=== PATIENT | female | born 1950 | race Caucasian/White ===

== ENCOUNTER → 2016-09-13 | Outpatient (CLI) | payer MEDICAID | LOC: FIMAGING 08:09 | PROVIDERS: ATTEND Physician Assistant | DX: R13.14 Dysphagia, pharyngoesophageal phase (principal) | CPT/HCPCS: 78264; A9541 ==

== ENCOUNTER → 2016-11-21 | Outpatient (CLI) | payer MEDICAID | LOC: FIMAGING 14:08 | PROVIDERS: ATTEND Physician Assistant | DX: N64.89 Other specified disorders of breast (principal) | CPT/HCPCS: G0204 ==

== ENCOUNTER → 2017-03-16 | Outpatient (CLI) | payer OTHER, MEDICAID | LOC: FIMAGING 08:44 | PROVIDERS: ATTEND Physician Assistant | DX: Z13.820 Encounter for screening for osteoporosis (principal); M85.80 Other specified disorders of bone density and structure, unspecified site; E07.9 Disorder of thyroid, unspecified; Z78.0 Asymptomatic menopausal state ==

== ENCOUNTER 2017-05-11 13:50 | Emergency (ER) | payer OTHER, MEDICAID ==
[2017-05-11 14:03] VITALS: TEMP 98.4
[2017-05-11] MEDS ORDERED: ONDANSETRON 4 MG/2 ML VIAL ONE (14:56)
[2017-05-11] MEDS ORDERED: MAG HYDROX/AL HYDROX/SIMETH 30 ML UDCUP PO ONE (15:33)
[2017-05-11] MEDS ORDERED: NS 1,000 ML IV ONE (15:33)
[2017-05-11] MEDS ORDERED: FAMOTIDINE 20 MG/NACL 50 ML IV ONE (15:33)
[2017-05-11] MEDS ORDERED: LIDOCAINE 2% VISCOUS 15 ML UDCUP PO ONE (15:33)
[2017-05-11] MEDS ORDERED: ONDANSETRON 4 MG/2 ML VIAL IVP ONE ×2 (15:33→15:34)
--- NOTE | 2017-05-11 15:38 | EDPHY ---
H & P Time Seen by Provider: 05/11/17 15:09 HPI/ROS: CHIEF COMPLAINT: Abdominal pain HISTORY OF PRESENT ILLNESS: The patient is a 66-year-old female who presents emergency department epigastric abdominal pain, nausea and vomiting. Patient states she developed I have migraine earlier this morning at approximately 11: 00 a.m.. She had ran out of her migraine medications, and did not take anything. However, her migraine improved. At 1:00 p.m. she developed epigastric abdominal pain. She has had multiple episodes of nausea and nonbloody emesis. She denies fever. No dysuria or frequency. No flank pain. The pain does not radiate. It is moderate to severe. She has had 1 previous episode of this pain but they did not find a source. Patient denies any alcohol use. She states that she takes her methadone regularly. REVIEW OF SYSTEMS: My complete review of systems is negative except as mentioned in the HPI. Past Medical/Surgical History: Includes fibroids, DJD, migraine, hepatitis-C, small-bowel obstruction Past surgical history: Includes gynecologic surgery, surgery for small-bowel obstruction Social history: The patient does not smoke. She denies alcohol or drug use. Smoking Status: Light smoker Physical Exam: Vitals noted. Afebrile. GENERAL: mild acute distress, alert. HEENT: Eyes normal to inspection, normal pharynx, no signs of dehydration. NECK: No thyromegaly, no lymphadenopathy, supple. RESPIRATORY: Clear to auscultation bilaterally, no rales, rhonchi or wheezing. CVS: Regular rate and rhythm, no rubs, murmurs, or gallops. ABDOMEN: Soft, epigastric tenderness to palpation with no rebound or guarding, nondistended, no organomegaly. BACK: Normal to inspection, no CVA tenderness. SKIN: Normal color, no rash, warm, dry. No pallor. EXTREMITIES: No pedal edema, no calf tenderness, no joint swelling. NEURO/PSYCH: [Alert and oriented, normal mood and affect, normal motor sensory exam. Constitutional: Initial Vital Signs Temperature (C) 36.9 C 05/11/17 14:01 Heart Rate 82 05/11/17 14:01 Respiratory Rate 18 05/11/17 14:01 Blood Pressure 134/97 H 05/11/17 14:01 O2 Sat (%) 95 05/11/17 14:01 O2 Delivery Mode Room Air O2 (L/minute) 8 Allergies/Adverse Reactions: No Known Allergies Allergy (Verified 05/11/17 14:04) Home Medications: Medication Instructions Recorded Hyoscyamine Sulfate [Levsin, 0.125 mg PO BID PRN 12/11/13 Hyomax-Sl 0.125 mg (*)] Levothyroxine [Synthroid 125 mcg 125 mcg PO DAILY06 12/11/13 (*)] Omeprazole [Prilosec] 40 mg PO DAILY 12/11/13 Ondansetron HCl [Zofran] 4 mg PO BID PRN 12/11/13 Propranolol HCl 80 mg PO DAILY 12/11/13 Rizatriptan Benzoate [Maxalt 10mg] 10 mg PO PRN PRN 12/11/13 SUMAtriptan [Imitrex Sc Injection] 6 mg SQ PRN PRN 12/11/13 Acetaminophen [Tylenol 325mg (*)] 325 - 650 mg PO Q6 PRN #0 tab 12/31/13 Docusate Sodium [Colace 100 MG (*)] 100 mg PO BID #0 cap 12/31/13 Enoxaparin [Lovenox 40 MG (*)] 40 mg SC DAILY #4 syr 12/31/13 Oxycodone Ir [Oxy Ir 5 mg (RX)] 5 - 15 mg PO Q4 PRN #80 tab 12/31/13 Warfarin Sodium [Coumadin 5MG (*)] 5 mg PO DAILY20 #21 tab 12/31/13 celeCOXIB [Celebrex (*)] 200 mg PO DAILY #21 cap 12/31/13 oxyCODONE CR [Oxycontin] 10 mg PO BID #14 tab 12/31/13 Medical Decision Making - Diagnostics Imaging Results: Imaging Impressions Abdomen CT 05/11/17 15:34 Impression: 1. Moderate hiatal hernia. 2. There is a 14 mm left adrenal gland nodule which is difficult to further characterize. Consider follow-up multiphasic contrast-enhanced CT imaging in 3- 6 months to ensure stability. 3. Bilateral renal cortical cysts. 4. Moderate constipation. There is no evidence of a bowel obstruction. Findings were discussed with SANDY GONZALEZ MD at 17:41, on 05/11/2017. ED Course/Re-evaluation: In the emergency department I discussed possible etiologies with the patient. I answered all her questions. IV was placed. Laboratory studies, CT scan were ordered. Patient was given Zofran 4 mg IV for nausea. She was given a GI cocktail for pain. She was given Pepcid 20 mg IV. The patient was given normal saline IV for hydration. Patient continued to have discomfort after above medications. She is given fentanyl 100 mcg IV. [place] [id number]. Her chemistry panel was normal. LFTs normal. Lipase normal. On recheck the patient continued to have abdominal discomfort. She stated the medications did not help her symptoms. She is given morphine [address] of the abdomen pelvis: Please refer the dictated report by Dr. Seferino Rubio. No acute disease noted. She has mild atrophy of her adrenal gland. This will need follow-up in 6 months. Discussed the results with the patient. Patient still discomfort. Mild epigastric tenderness palpation with no rebound or guarding. She was given Dilaudid 0.5 mg IV and Reglan 10 mg IV. 1825: I went to recheck the patient. She was not in the room. 1835: I again went to check on the patient. She was still not in the room. I discussed this with the nurse. The patient's clothes are gone from the room. It is noted that there is no visible IV in the room. Patient currently uses methadone. I have concern with IV drug abuse. PD was notified. Differential Diagnosis: My differential includes but is not limited to pancreatitis, cholecystitis, cholangitis, small-bowel obstruction, perforation, gastritis, esophagitis, hiatal hernia, ACS - Data Points Laboratory Results: Laboratory Results 05/11/17 15:30 05/11/17 15:30 05/11/17 05/11/17 05/11/17 17:16 15:30 15:30 WBC RBC Hgb Hct MCV MCH MCHC RDW Plt Count MPV Neut % (Auto) Lymph % (Auto) [place] % (Auto) Eos % (Auto) Baso % (Auto) Nucleat RBC Rel Count Absolute Neuts (auto) Absolute Lymphs (auto) Absolute Monos (auto) Absolute Eos (auto) Absolute Basos (auto) Absolute Nucleated RBC Immature Gran % Immature Gran # Sodium 140 mEq/L mEq/L (134-144) Potassium 4.1 mEq/L mEq/L (3.5-5.2) Chloride 101 mEq/L mEq/L (97-110) Carbon Dioxide 22 mEq/l mEq/l (22-31) Anion Gap 17 mEq/L H mEq/L (8-16) BUN 18 mg/dL mg/dL (7-23) Creatinine 0.7 mg/dL mg/dL (0.6-1.0) Estimated GFR > 60 Glucose 118 mg/dL H mg/dL (70-100) Calcium 9.8 mg/dL mg/dL (8.5-10.4) Total Bilirubin 0.6 mg/dL mg/dL (0.1-1.4) Conjugated Bilirubin 0.4 mg/dL mg/dL (0.0-0.5) Unconjugated Bilirubin 0.2 mg/dL mg/dL (0.0-1.1) AST 25 IU/L IU/L (14-46) ALT 35 IU/L IU/L (9-52) Alkaline Phosphatase 110 IU/L IU/L (38-126) Total Protein 7.1 g/dL g/dL (6.3-8.2) Albumin 4.3 g/dL g/dL (3.5-5.0) Lipase 83 IU/L IU/L (23-300) Beta HCG, Qual NEGATIVE Urine Color YELLOW Urine Appearance CLEAR Urine pH 6.0 (5.0-7.5) Ur Specific [place] 1.034 H (1.002-1.030) Urine Protein NEGATIVE (NEGATIVE) Urine Ketones 1+ H (NEGATIVE) Urine Blood NEGATIVE (NEGATIVE) Urine Nitrate NEGATIVE (NEGATIVE) Urine Bilirubin NEGATIVE (NEGATIVE) Urine Urobilinogen NEGATIVE EU EU (0.2-1.0) Ur Leukocyte Esterase NEGATIVE (NEGATIVE) Urine Glucose NEGATIVE (NEGATIVE) 05/11/17 15:30 WBC 13.26 10^3/uL H 10^3/uL (3.80-9.50) RBC 4.61 10^6/uL 10^6/uL (4.18-5.33) Hgb 14.3 g/dL g/dL (12.6-16.3) Hct 40.1 % % (38.0-47.0) MCV 87.0 fL fL (81.5-99.8) MCH 31.0 pg pg (27.9-34.1) MCHC 35.7 g/dL g/dL (32.4-36.7) RDW 12.6 % % (11.5-15.2) Plt Count 316 10^3/uL 10^3/uL (150-400) MPV 10.6 fL fL (8.7-11.7) Neut % (Auto) 80.0 % H % (39.3-74.2) Lymph % (Auto) 13.1 % L % (15.0-45.0) [place] % (Auto) 4.2 % L % (4.5-13.0) Eos % (Auto) 1.4 % % (0.6-7.6) Baso % (Auto) 0.8 % % (0.3-1.7) Nucleat RBC Rel Count 0.0 % % (0.0-0.2) Absolute Neuts (auto) 10.61 10^3/uL H 10^3/uL (1.70-6.50) Absolute Lymphs (auto) 1.74 10^3/uL 10^3/uL (1.00-3.00) Absolute Monos (auto) 0.56 10^3/uL 10^3/uL (0.30-0.80) Absolute Eos (auto) 0.18 10^3/uL 10^3/uL (0.03-0.40) Absolute Basos (auto) 0.11 10^3/uL H 10^3/uL (0.02-0.10) Absolute Nucleated RBC 0.00 10^3/uL 10^3/uL (0-0.01) Immature Gran % 0.5 % % (0.0-1.1) Immature Gran # 0.06 10^3/uL 10^3/uL (0.00-0.10) Sodium Potassium Chloride Carbon Dioxide Anion Gap BUN Creatinine Estimated GFR Glucose Calcium Total Bilirubin Conjugated Bilirubin Unconjugated Bilirubin AST ALT Alkaline Phosphatase Total Protein Albumin Lipase Beta HCG, Qual Urine Color Urine Appearance Urine pH Ur Specific [place] Urine Protein Urine Ketones Urine Blood Urine Nitrate Urine Bilirubin Urine Urobilinogen Ur Leukocyte Esterase Urine Glucose Medications Given: Discontinued Medications Al Hydroxide/Mg Hydroxide (Maalox Susp) 30 ml PO ONCE ONE Stop: 05/11/17 15:34 Last Admin: 05/11/17 16:43 Dose: 30 ml Fentanyl (Sublimaze) 100 mcg IVP EDNOW ONE Stop: 05/11/17 15:51 Last Admin: 05/11/17 15:56 Dose: 100 mcg Hydromorphone HCl (Dilaudid) 0.5 mg IVP EDNOW ONE Stop: 05/11/17 17:53 Last Admin: 05/11/17 18:03 Dose: 0.5 mg Sodium Chloride (Ns) 1,000 mls @ 0 mls/hr IV EDNOW ONE; Wide Open PRN Reason: Protocol Stop: 05/11/17 15:34 Last Admin: 05/11/17 15:41 Dose: 1,000 mls Famotidine/Sodium Chloride (Pepcid 20 Mg (Premix)) 50 mls @ 200 mls/hr IV EDNOW ONE Stop: 05/11/17 15:47 Last Admin: 05/11/17 15:42 Dose: 50 mls Lidocaine (Lidocaine 2% Viscous) 15 ml PO ONCE ONE Stop: 05/11/17 15:34 Last Admin: 05/11/17 16:43 Dose: 15 ml Metoclopramide HCl (Reglan Injection) 10 mg IVP EDNOW ONE Stop: 05/11/17 17:53 Last Admin: 05/11/17 18:03 Dose: 10 mg Morphine Sulfate (Morphine) 4 mg IVP EDNOW ONE Stop: 05/11/17 16:26 Last Admin: 05/11/17 16:30 Dose: 4 mg Ondansetron HCl (Zofran) 4 mg IVP EDNOW ONE Stop: 05/11/17 15:34 Last Admin: 05/11/17 15:41 Dose: 4 mg Ondansetron HCl (Zofran) 4 mg IVP EDNOW ONE Stop: 05/11/17 15:35 Last Admin: 05/11/17 17:10 Dose: Not Given Departure - Departure Disposition: Against Medical Advice Clinical Impression: Abdominal pain Qualifiers: Abdominal location: epigastric Qualified Code(s): R10.13 - Epigastric pain Condition: Good Instructions: Abdominal Pain (ED) Additional Instructions: Your CT scan showed no acute disease. You did have a small adrenal gland. This will need follow-up in 6 months by your primary care physician. Referrals: Dorcas Garrison [Primary Care Provider] - 5-7 days, call for appt.
[2017-05-11 15:40] LABS: % IMMATURE GRANULYOCYTES 0.5 % (0.0-1.1); ABSOLUTE IMMATURE GRANULOCYTES 0.06 10^3/uL (0.00-0.10); ADD DIFF? NO; ADD MORPH? NO; ADD SCAN? NO; ATYPICAL LYMPHOCYTE FLAG 0 (0-99); FRAGMENT RBC FLAG 0 (0-99); HEMATOCRIT 40.1 % (38.0-47.0); HEMOGLOBIN 14.3 g/dL (12.6-16.3); LEFT SHIFT FLG 0 (0-99); LIPEMIA HEMOLYSIS FLAG 90 (0-99); MEAN CELL HEMOGLOBIN CONCENTR. 35.7 g/dL (32.4-36.7); MEAN PLATELET VOLUME 10.6 fL (8.7-11.7); PLATELET CLUMPS FLAG 0 (0-99); PLATELET COUNT 316 10^3/uL (150-400); RED BLOOD CELL COUNT 4.61 10^6/uL (4.18-5.33); RED CELL DISTRIBUTION WIDTH 12.6 % (11.5-15.2)
[2017-05-11 15:49] LABS: ALANINE AMINOTRANSFERASE 35 IU/L (9-52); ALBUMIN 4.3 g/dL (3.5-5.0); ALKALINE PHOSPHATASE 110 IU/L (38-126); ANION GAP 17 mEq/L (8-16); ASPARTATE AMINOTRANSFERASE 25 IU/L (14-46); BILIRUBIN,TOTAL 0.6 mg/dL (0.1-1.4); BILIRUBIN-CONJUGATED 0.4 mg/dL (0.0-0.5); BILIRUBIN-UNCONJUGATED 0.2 mg/dL (0.0-1.1); CALCIUM 9.8 mg/dL (8.5-10.4); CARBON DIOXIDE 22 mEq/l (22-31); CHLORIDE 101 mEq/L (97-110); CREATININE 0.7 mg/dL (0.6-1.0); GLOMERULAR FILTRATION RATE > 60; GLUCOSE 118 mg/dL (70-100); POTASSIUM 4.1 mEq/L (3.5-5.2); SODIUM 140 mEq/L (134-144); TOTAL PROTEIN 7.1 g/dL (6.3-8.2)
[2017-05-11] MEDS ORDERED: fentaNYL 100 MCG/2 ML INJ IVP ONE (15:50)
[2017-05-11] MEDS ORDERED: IOPAMIDOL (ISOVUE-300) 100 ML BTL ONE (16:12)
[2017-05-11 17:45] LABS: COLOR YELLOW; LEUKOCYTE ESTERASE,URINE NEGATIVE (NEGATIVE); NITRITE,URINE NEGATIVE (NEGATIVE)
[2017-05-11] MEDS ORDERED: METOCLOPRAMIDE 10 MG/2 ML VIAL IVP ONE (17:52)
[2017-05-11] MEDS ORDERED: HYDROmorphONE/DILAUDID 1 MG/ML INJ IVP ONE (17:52)
[2017-05-11 18:17] VITALS: BP 152/86; PULSE 68; RESP 16; O2SAT 98
== END 2017-05-11 18:53 | disposition left against medical advice (07) ==
DX: R10.13 Epigastric pain (principal); F17.200 Nicotine dependence, unspecified, uncomplicated; E86.9 Volume depletion, unspecified; Z79.01 Long term (current) use of anticoagulants
CPT/HCPCS: 74177; 96365; 96375; 99285; J1170; J2405; J2765; J3010; Q9967

== ENCOUNTER 2017-05-19 09:57 | Emergency (ER) | payer OTHER, MEDICAID ==
[2017-05-19] MEDS ORDERED: METOCLOPRAMIDE 10 MG/2 ML VIAL IVP ONE (10:55)
[2017-05-19] MEDS ORDERED: NS 1,000 ML IV ONE (10:55)
--- NOTE | 2017-05-19 11:00 | EDPHY ---
General Time Seen by Provider: 05/19/17 10:46 Narrative: CHIEF COMPLAINT: Abdominal pain, nausea vomiting HISTORY OF PRESENT ILLNESS: Patient complains of return of abdominal pain and vomiting this morning. This was sudden onset. Started after having a migraine this morning as well. Constant duration. Vomiting several times. Painful in the epigastrium and radiates throughout. No trauma or injury. No bloody stools. No fever chills. History of irritable bowel syndrome. Here for similar complaints last week with laboratory studies and CT scan performed. She was feeling well until this morning. No other associated complaints or modifying factors. REVIEW OF SYSTEMS: Ten systems reviewed and are negative unless otherwise noted in the HPI PCP: Dr. Garrison SPECIALISTS: [facility] PAST MEDICAL HISTORY: Irritable bowel syndrome, migraines Endoscopy less than 3 years ago at [facility] PAST SURGICAL HISTORY: Laparotomy due to Small-bowel obstruction with lysis of adhesions, myomectomies SOCIAL HISTORY: Nonsmoker. FAMILY HISTORY: Noncontributory EXAMINATION General Appearance: Alert, no distress Head: normocephalic, atraumatic Eyes: Pupils equal and round, no conjunctival pallor or injection ENT, Mouth: Mucous membranes moist. Uvula midline. Airway patent Neck: Normal inspection, supple, non-tender Respiratory: Lungs are clear to auscultation. No wheezing, rhonchi or crackles Cardiovascular: Regular rate and rhythm. No murmur Gastrointestinal: Abdomen is soft and nondistended. No tympany rigidity. Tenderness in all 4 quadrants out of proportion to examination. No CVA tenderness. No guarding. Bowel sounds symmetric in all 4 quadrants Neurological: A&O, nonfocal, normal gait walking back from the restroom. Strength is symmetric in all 4 limbs Skin: Warm and dry, no rash. No petechiae or purpura Extremities: Nontender, no pedal edema Psychiatric: Mood and affect normal DIFFERENTIAL DIAGNOSES: Including but not limited to gastritis, enteritis, colitis, irritable bowel, inflammatory bowel MDM: 10:55 a.m. Abdominal pain with nausea and vomiting in patient with irritable bowel syndrome. Abdominal examination is benign. Vital signs are stable. She was here on the [address] scan laboratory studies. There is no surgical finding on the CT scan. She was discharged home with Zofran and Compazine. She was feeling better until this morning. She is in no acute distress. Abdominal exam remains benign. I have ordered laboratory studies, Reglan and Benadryl. I will recheck after these medications. 11:10 a.m. Notified by the charge nurse that the patient was witness putting the index finger in her throat to make herself vomit. 12:00 p.m. laboratory studies reveal mild leukocytosis without any significant abnormality otherwise. 12:15 p.m. Notified by RN that the patient is asking for pain medication and threatening to leave we would not give it to her. I have re-evaluated the patient at this time. She is requesting narcotic pain medication. I informed her that I will not be ordered any narcotic pain medication. I informed her that there is no indication at this time. Her abdominal exam is benign. She does have irritable bowel but has no significant findings on examination laboratory studies. She has a CT scan performed here less than 8 days ago that was normal. I will discharge her home with further antiemetics. She has an appointment on Saturday with her established GI physician. I would like her to call them in the morning to see if they would like to see her sooner. We discussed ED precautions. - History Smoking Status: Light smoker - Objective Vital Signs: Initial Vital Signs Temperature (C) 97.5 F 05/19/17 10:02 Heart Rate 87 05/19/17 10:02 Respiratory Rate 22 H 05/19/17 10:02 Blood Pressure 92/60 L 05/19/17 10:02 O2 Sat (%) 97 05/19/17 10:02 O2 Delivery Mode Room Air Allergies/Adverse Reactions: No Known Allergies Allergy (Verified 05/11/17 14:04) Home Medications: Medication Instructions Recorded Hyoscyamine Sulfate [Levsin, 0.125 mg PO BID PRN 12/11/13 Hyomax-Sl 0.125 mg (*)] Levothyroxine [Synthroid 125 mcg 125 mcg PO DAILY06 12/11/13 (*)] Omeprazole [Prilosec] 40 mg PO DAILY 12/11/13 Ondansetron HCl [Zofran] 4 mg PO BID PRN 12/11/13 Propranolol HCl 80 mg PO DAILY 12/11/13 Rizatriptan Benzoate [Maxalt 10mg] 10 mg PO PRN PRN 12/11/13 SUMAtriptan [Imitrex Sc Injection] 6 mg SQ PRN PRN 12/11/13 Acetaminophen [Tylenol 325mg (*)] 325 - 650 mg PO Q6 PRN #0 tab 12/31/13 Docusate Sodium [Colace 100 MG (*)] 100 mg PO BID #0 cap 12/31/13 Enoxaparin [Lovenox 40 MG (*)] 40 mg SC DAILY #4 syr 12/31/13 Oxycodone Ir [Oxy Ir 5 mg (RX)] 5 - 15 mg PO Q4 PRN #80 tab 12/31/13 Warfarin Sodium [Coumadin 5MG (*)] 5 mg PO DAILY20 #21 tab 12/31/13 celeCOXIB [Celebrex (*)] 200 mg PO DAILY #21 cap 12/31/13 oxyCODONE CR [Oxycontin] 10 mg PO BID #14 tab 12/31/13 Dicyclomine [Bentyl 20 MG (*)] 20 mg PO QID #11 tab 05/19/17 Promethazine HCl [Phenergan 25mg 25 mg PO Q8 PRN #12 tab 05/19/17 (*)] hydrOXYzine HCL [Hydroxyzine HCl] 1 - 2 tab PO Q6-8PRN PRN #15 tablet 05/19/17 Laboratory Results: Laboratory Results 05/19/17 11:10 05/19/17 11:10 05/19/17 05/19/17 11:10 11:10 WBC 11.03 10^3/uL H 10^3/uL (3.80-9.50) RBC 4.96 10^6/uL 10^6/uL (4.18-5.33) Hgb 15.5 g/dL g/dL (12.6-16.3) Hct 43.6 % % (38.0-47.0) MCV 87.9 fL fL (81.5-99.8) MCH 31.3 pg pg (27.9-34.1) MCHC 35.6 g/dL g/dL (32.4-36.7) RDW 12.7 % % (11.5-15.2) Plt Count 347 10^3/uL 10^3/uL (150-400) MPV 10.8 fL fL (8.7-11.7) Neut % (Auto) 76.8 % H % (39.3-74.2) Lymph % (Auto) 14.2 % L % (15.0-45.0) [place] % (Auto) 5.1 % % (4.5-13.0) Eos % (Auto) 2.4 % % (0.6-7.6) Baso % (Auto) 1.2 % % (0.3-1.7) Nucleat RBC Rel Count 0.0 % % (0.0-0.2) Absolute Neuts (auto) 8.48 10^3/uL H 10^3/uL (1.70-6.50) Absolute Lymphs (auto) 1.57 10^3/uL 10^3/uL (1.00-3.00) Absolute Monos (auto) 0.56 10^3/uL 10^3/uL (0.30-0.80) Absolute Eos (auto) 0.26 10^3/uL 10^3/uL (0.03-0.40) Absolute Basos (auto) 0.13 10^3/uL H 10^3/uL (0.02-0.10) Absolute Nucleated RBC 0.00 10^3/uL 10^3/uL (0-0.01) Immature Gran % 0.3 % % (0.0-1.1) Immature Gran # 0.03 10^3/uL 10^3/uL (0.00-0.10) Sodium 142 mEq/L mEq/L (134-144) Potassium 4.2 mEq/L mEq/L (3.5-5.2) Chloride 103 mEq/L mEq/L (97-110) Carbon Dioxide 24 mEq/l mEq/l (22-31) Anion Gap 15 mEq/L mEq/L (8-16) BUN 21 mg/dL mg/dL (7-23) Creatinine 0.7 mg/dL mg/dL (0.6-1.0) Estimated GFR > 60 Glucose 117 mg/dL H mg/dL (70-100) Calcium 10.2 mg/dL mg/dL (8.5-10.4) Total Bilirubin 0.4 mg/dL mg/dL (0.1-1.4) Conjugated Bilirubin 0.3 mg/dL mg/dL (0.0-0.5) Unconjugated Bilirubin 0.1 mg/dL mg/dL (0.0-1.1) AST 23 IU/L IU/L (14-46) ALT 34 IU/L IU/L (9-52) Alkaline Phosphatase 116 IU/L IU/L (38-126) Troponin I < 0.012 ng/mL ng/mL (0.000-0.034) Total Protein 7.6 g/dL g/dL (6.3-8.2) Albumin 4.6 g/dL g/dL (3.5-5.0) Lipase 106 IU/L IU/L (23-300) Medications Given: Discontinued Medications Diphenhydramine HCl (Benadryl Injection) 50 mg IVP EDNOW ONE Stop: 05/19/17 10:57 Last Admin: 05/19/17 11:09 Dose: 50 mg Sodium Chloride (Ns) 1,000 mls @ 0 mls/hr IV EDNOW ONE; Wide Open PRN Reason: Protocol Stop: 05/19/17 10:56 Last Admin: 05/19/17 11:09 Dose: 1,000 mls Metoclopramide HCl (Reglan Injection) 10 mg IVP EDNOW ONE Stop: 05/19/17 10:56 Last Admin: 05/19/17 11:09 Dose: 10 mg Departure - Departure Disposition: Home, Routine, Self-Care Clinical Impression: Abdominal pain Qualifiers: Abdominal location: generalized Qualified Code(s): R10.84 - Generalized abdominal pain Irritable bowel syndrome Qualifiers: Irritable bowel syndrome type: unspecified Qualified Code(s): K58.9 - Irritable bowel syndrome without diarrhea Condition: Good Instructions: Irritable Bowel Syndrome (ED), Acute Nausea and Vomiting (ED) Additional Instructions: 1. Nausea medications as prescribed 2. Follow up with established GI physician Referrals: Dorcas Garrison [Primary Care Provider] - As per Instructions Prescriptions: Dicyclomine [Bentyl 20 MG (*)] 20 mg PO QID #11 tab hydrOXYzine HCL [Hydroxyzine HCl] 1 - 2 tab PO Q6-8PRN PRN #15 tablet PRN Reason: Nausea/Vomiting, Use 2nd Promethazine HCl [Phenergan 25mg (*)] 25 mg PO Q8 PRN #12 tab PRN Reason: Nausea/Vomiting, Use 1st
[2017-05-19 11:16] LABS: PLATELET COUNT 347 10^3/uL (150-400)
--- NOTE | 2017-05-19 11:43 | CPEKG ---
Heart Rate: 64 RR Interval: 938 P-R Interval: 152 QRSD Interval: 68 QT Interval: 448 QTC Interval: 463 P [place]: 59 QRS [place]: 74 T Wave [place]: 60 EKG Severity - ABNORMAL ECG - EKG Impression: SINUS RHYTHM EKG Impression: PROBABLE ANTEROSEPTAL INFARCT, AGE INDETERM Electronically Signed By: Scout Babcock 27-May-2017 12:35:43
--- NOTE | 2017-05-19 11:43 | CPEKG ---
Heart Rate: 64 RR Interval: 938 P-R Interval: 152 QRSD Interval: 68 QT Interval: 448 QTC Interval: 463 P [place]: 59 QRS [place]: 74 T Wave [place]: 60 EKG Severity - ABNORMAL ECG - EKG Impression: SINUS RHYTHM EKG Impression: PROBABLE ANTEROSEPTAL INFARCT, AGE INDETERM Electronically Signed By: Scout Babcock 27-May-2017 12:35:43
[2017-05-19 12:22] VITALS: BP 103/84; PULSE 64; RESP 16; TEMP 98.1; O2SAT 94
--- NOTE | 2017-05-19 14:36 | ASDISCHSUM ---
Discharge Information Plan Status:Home with No Needs Medically Cleared to Leave: Discharge Date:05/19/2017 12:28 PM CM D/C Disposition:Home, Routine, Self-Care ADT D/C Disposition:Home, Routine, Self-Care Projected Discharge Date:05/19/2017 12:28 PM Transportation at D/C:None or Unknown Discharge Delay Reason: Follow-Up Date:05/19/2017 12:28 PM Discharge Slot: Final Diagnosis: Placement Information Patient Contact Information Contact Name:MARTHA Relationship:Reinier Address: Work Phone: City:[place] Alternate Phone: State/[place] Code:[place] Email: Financial Information Financial Class: Primary Plan Desc:MEDICARE OUTPATIENT Primary Plan Number:[id number] Secondary Plan Desc:MEDICAID HEALTH [place] Secondary Plan Number:[id number] Assessment Information LACE LACE Emergency dept visits in Answers: 2 last 6 months Score: 2 Date Signed: 05/19/2017 02:21 PM Electronically Signed By:Doris Walker RN [facility] Progress Note CM Note CM Note Notes: Reviewed chart due to patient's Narcotic Caution ED CM note. Patient was seen 05/11/17 for similar symptoms as today: N/V and headache; patient left AMA on 05/11/17 with the IV still in her arm. Patient had been asking for narcotic pain medication and was informed she would not receive it, and was also told Case Management was going to speak to her about follow-up and other pain management options, but patient left AMA before CM saw patient during that visit. Today the ED RN witnessed the patient putting her index finger down her throat in order to vomit. The patient also asked for narcotic pain medication today and threatened to leave unless she received pain meds. Patient was reminded she would not be receiving narcotic pain meds from the ED. Patient was provided prescriptions for antiemetics and bentyl and DC instructions to follow up with her PCP Dorcas Garrison at [facility] and also her GI specialist (it appears she has seen Macy Martinez at [facility] in the past - 08/2016). CM to follow up with [facility] tomorrow when office is open. Date Signed: 05/19/2017 02:35 PM Electronically Signed By:Doris Walker RN Intervention Information
--- NOTE | 2017-05-19 14:36 | ASDISCHSUM ---
Discharge Information Plan Status:Home with No Needs Medically Cleared to Leave: Discharge Date:05/19/2017 12:28 PM CM D/C Disposition:Home, Routine, Self-Care ADT D/C Disposition:Home, Routine, Self-Care Projected Discharge Date:05/19/2017 12:28 PM Transportation at D/C:None or Unknown Discharge Delay Reason: Follow-Up Date:05/19/2017 12:28 PM Discharge Slot: Final Diagnosis: Placement Information Patient Contact Information Contact Name:MARTHA Relationship:Reinier Address: Work Phone: City:[place] Alternate Phone: State/[employer] Code:[place] Email: Financial Information Financial Class: Primary Plan Desc:MEDICARE OUTPATIENT Primary Plan Number:[id number] Secondary Plan Desc:MEDICAID HEALTH [place] Secondary Plan Number:[id number] Assessment Information LACE LACE Emergency dept visits in Answers: 2 last 6 months Score: 2 Date Signed: 05/19/2017 02:21 PM Electronically Signed By:Doris Walker RN [facility] Progress Note CM Note CM Note Notes: Reviewed chart due to patient's Narcotic Caution ED CM note. Patient was seen 05/11/17 for similar symptoms as today: N/V and headache; patient left AMA on 05/11/17 with the IV still in her arm. Patient had been asking for narcotic pain medication and was informed she would not receive it, and was also told Case Management was going to speak to her about follow-up and other pain management options, but patient left AMA before CM saw patient during that visit. Today the ED RN witnessed the patient putting her index finger down her throat in order to vomit. The patient also asked for narcotic pain medication today and threatened to leave unless she received pain meds. Patient was reminded she would not be receiving narcotic pain meds from the ED. Patient was provided prescriptions for antiemetics and bentyl and DC instructions to follow up with her PCP Dorcas Garrison at [facility] and also her GI specialist (it appears she has seen Macy Martinez at [facility] in the past - 08/2016). CM to follow up with [facility] tomorrow when office is open. Date Signed: 05/19/2017 02:35 PM Electronically Signed By:Doris Walker RN Intervention Information
--- NOTE | 2017-05-19 14:36 | ASDISCHSUM ---
Discharge Information Plan Status:Home with No Needs Medically Cleared to Leave: Discharge Date:05/19/2017 12:28 PM CM D/C Disposition:Home, Routine, Self-Care ADT D/C Disposition:Home, Routine, Self-Care Projected Discharge Date:05/19/2017 12:28 PM Transportation at D/C:None or Unknown Discharge Delay Reason: Follow-Up Date:05/19/2017 12:28 PM Discharge Slot: Final Diagnosis: Placement Information Patient Contact Information Contact Name:MARTHA Relationship:Reinier Address: Work Phone: City:[place] Alternate Phone: State/[place] Email: Financial Information Financial Class: Primary Plan Desc:MEDICARE OUTPATIENT Primary Plan Number:[id number] Secondary Plan Desc:MEDICAID HEALTH FIRST [place] OP Secondary Plan Number:[id number] Assessment Information LACE LACE Emergency dept visits in Answers: 2 last 6 months Score: 2 Date Signed: 05/19/2017 02:21 PM Electronically Signed By:Doris Walker RN [facility] Progress Note CM Note CM Note Notes: Reviewed chart due to patient's Narcotic Caution ED CM note. Patient was seen 05/11/17 for similar symptoms as today: N/V and headache; patient left AMA on 05/11/17 with the IV still in her arm. Patient had been asking for narcotic pain medication and was informed she would not receive it, and was also told Case Management was going to speak to her about follow-up and other pain management options, but patient left AMA before CM saw patient during that visit. Today the ED RN witnessed the patient putting her index finger down her throat in order to vomit. The patient also asked for narcotic pain medication today and threatened to leave unless she received pain meds. Patient was reminded she would not be receiving narcotic pain meds from the ED. Patient was provided prescriptions for antiemetics and bentyl and DC instructions to follow up with her PCP Dorcas Garrison at [facility] and also her GI specialist (it appears she has seen Macy Martinez at [facility] in the past - 08/2016). CM to follow up with [facility] tomorrow when office is open. Date Signed: 05/19/2017 02:35 PM Electronically Signed By:Doris Walker RN Intervention Information
== END 2017-05-19 12:28 | disposition home or self-care (01) ==
DX: K58.9 Irritable bowel syndrome, unspecified (principal); F17.200 Nicotine dependence, unspecified, uncomplicated; E86.9 Volume depletion, unspecified; Z79.01 Long term (current) use of anticoagulants
CPT/HCPCS: 93005; 96374; 96375; 99284; J1200; J2765

== ENCOUNTER 2017-05-21 13:55 | Emergency (ER) | payer OTHER, MEDICAID ==
[2017-05-21 14:05] VITALS: TEMP 99.1
[2017-05-21] MEDS ORDERED: LORazepam 2 MG/ML INJ IVP ONE ×2 (14:42→15:19)
[2017-05-21] MEDS ORDERED: NS 1,000 ML IV ONE (14:43)
[2017-05-21 14:47] LABS: PLATELET COUNT 324 10^3/uL (150-400)
--- NOTE | 2017-05-21 14:49 | EDPHY ---
H & P Time Seen by Provider: 05/21/17 14:12 HPI/ROS: CHIEF COMPLAINT: Abdominal pain, vomiting HISTORY OF PRESENT ILLNESS: 66-year-old female presents to the emergency department by private vehicle complaining of diffuse abdominal pain and vomiting. The patient has been seen 2 previous times in the last 10 days. She has a history of chronic abdominal pain. She has had bowel obstruction in the past. She was seen on 05/11/[address] scan of the abdomen and pelvis which was normal. The patient has a history of substance abuse and used to use heroin. She has been on methadone for the last 2 years and has been tapering off of this. She states that while she was on methadone she did not have a flare-up of this abdominal pain. When she was in the emergency department 2 days ago and advised that she would not receive narcotic medication, she left against medical advice. Patient states that her friend brought over "a hit of heroin "which she smoked and she stated that took the pain away. The patient feels nauseous and vomiting. She does not feel that she has recurring bowel obstruction. She has had this exact pain in the past. No back pain. No chest pain or difficulty breathing. No reported trauma. She does not drink alcohol. REVIEW OF SYSTEMS: Constitutional: No fever, no chills. Eyes: No double or blurry vision. ENT: No sore throat. Respiratory: No cough, no shortness of breath. Cardiac: No chest pain. Gastrointestinal: Abdominal pain as above. Vomiting. No diarrhea. Genitourinary: No dysuria. Musculoskeletal: No neck or back pain. Skin: No rashes. Neurological: No headache. Past Medical/Surgical History: Substance abuse, chronic abdominal pain, migraine headaches, hepatitis-C Social History: Single and lives in [place] Smoking Status: Light smoker Physical Exam: General Appearance: Alert, moderate to severe distress. Extremely anxious Eyes: Pupils equal and round. Extraocular motions are all intact. ENT: Mouth: Mucous membranes moist. Respiratory: No wheezing, rhonchi, or rales, lungs are clear to auscultation. Cardiovascular: Regular rate and rhythm. Gastrointestinal: Abdomen is soft. Bowel sounds are present. Patient is voluntarily guarding. There is no masses or rebound noted. No CVA tenderness bilaterally. Neurological: Alert and oriented x 3, cranial nerves II through XII grossly intact Skin: Warm and dry, no rashes. Musculoskeletal: Nontender to palpate along the cervical, thoracic or lumbar spine. Neck is supple. Extremities: Full range of motion and no peripheral edema. Psychiatric: Patient is oriented X 3, there is no agitation. Constitutional: Initial Vital Signs Temperature (C) 37.3 C 05/21/17 14:04 Heart Rate 75 05/21/17 14:04 Respiratory Rate 20 05/21/17 14:04 Blood Pressure 165/87 H 05/21/17 14:04 O2 Sat (%) 95 05/21/17 14:04 O2 Delivery Mode Room Air Allergies/Adverse Reactions: No Known Allergies Allergy (Verified 05/11/17 14:04) Home Medications: Medication Instructions Recorded Compazine 25mg supp (*) 05/21/17 Methadone HCl 05/21/17 Reglan 05/21/17 Zofran Odt 05/21/17 Medical Decision Making ED Course/Re-evaluation: 66-year-old female with a history of substance abuse presents to the emergency department with abdominal pain and vomiting. The patient admits to using heroin 2 days ago which helped control her pain. Patient's vital signs are stable. She is afebrile. Patient was informed that she would not receive IV narcotics given our policy. Patient questioned why this was. I did explain to her that we could use other alternatives to opiates. She understands that she will not receive narcotic medication while she is in the emergency department. Patient received a total of 2 mg of Ativan IV and was feeling much better. She is currently being p.o. challenged. Patient is feeling much better. She was tolerating clear fluids. She is calling for a ride to go home. I encouraged close follow-up with primary care provider. The case was discussed with Dr. Conway, supervising physician, who did not directly evaluate the patient but agrees with treatment and plan. Differential Diagnosis: Including but not limited to opiate withdrawal, opiate dependence, bowel obstruction, colitis, electrolyte abnormality, dehydration - Data Points Laboratory Results: Laboratory Results 05/21/17 14:41 05/21/17 14:41 05/21/17 05/21/17 14:41 14:41 WBC 12.26 10^3/uL H 10^3/uL (3.80-9.50) RBC 4.48 10^6/uL 10^6/uL (4.18-5.33) Hgb 13.9 g/dL g/dL (12.6-16.3) Hct 39.1 % % (38.0-47.0) MCV 87.3 fL fL (81.5-99.8) MCH 31.0 pg pg (27.9-34.1) MCHC 35.5 g/dL g/dL (32.4-36.7) RDW 12.5 % % (11.5-15.2) Plt Count 324 10^3/uL 10^3/uL (150-400) MPV 10.8 fL fL (8.7-11.7) Neut % (Auto) 80.0 % H % (39.3-74.2) Lymph % (Auto) 11.6 % L % (15.0-45.0) Randall % (Auto) 6.1 % % (4.5-13.0) Eos % (Auto) 1.1 % % (0.6-7.6) Baso % (Auto) 0.9 % % (0.3-1.7) Nucleat RBC Rel Count 0.0 % % (0.0-0.2) Absolute Neuts (auto) 9.81 10^3/uL H 10^3/uL (1.70-6.50) Absolute Lymphs (auto) 1.42 10^3/uL 10^3/uL (1.00-3.00) Absolute Monos (auto) 0.75 10^3/uL 10^3/uL (0.30-0.80) Absolute Eos (auto) 0.13 10^3/uL 10^3/uL (0.03-0.40) Absolute Basos (auto) 0.11 10^3/uL H 10^3/uL (0.02-0.10) Absolute Nucleated RBC 0.00 10^3/uL 10^3/uL (0-0.01) Immature Gran % 0.3 % % (0.0-1.1) Immature Gran # 0.04 10^3/uL 10^3/uL (0.00-0.10) Sodium 141 mEq/L mEq/L (134-144) Potassium 3.7 mEq/L mEq/L (3.5-5.2) Chloride 104 mEq/L mEq/L (97-110) Carbon Dioxide 20 mEq/l L mEq/l (22-31) Anion Gap 17 mEq/L H mEq/L (8-16) BUN 20 mg/dL mg/dL (7-23) Creatinine 0.7 mg/dL mg/dL (0.6-1.0) Estimated GFR > 60 Glucose 105 mg/dL H mg/dL (70-100) Calcium 9.4 mg/dL mg/dL (8.5-10.4) Medications Given: Discontinued Medications Sodium Chloride (Ns) 1,000 mls @ 0 mls/hr IV EDNOW ONE; Wide Open PRN Reason: Protocol Stop: 05/21/17 14:44 Last Admin: 05/21/17 14:40 Dose: 1,000 mls Lorazepam (Ativan Injection) 1 mg IVP EDNOW ONE Stop: 05/21/17 14:43 Last Admin: 05/21/17 14:50 Dose: 1 mg Lorazepam (Ativan Injection) 1 mg IVP EDNOW ONE Stop: 05/21/17 15:20 Last Admin: 05/21/17 15:24 Dose: 1 mg Departure - Departure Disposition: Home, Routine, Self-Care Clinical Impression: Abdominal pain Qualifiers: Abdominal location: generalized Qualified Code(s): R10.84 - Generalized abdominal pain Condition: Good Instructions: Acute Nausea and Vomiting (ED), Abdominal Pain (ED) Additional Instructions: Abdominal Pain: Return to the Emergency Department immediately for increasing pain, fever, vomiting, or if not completely better in 8-12 hours. Clear liquids and then slowly advance diet as tolerated. Referrals: Dorcas Garrison [Primary Care Provider] - As per Instructions
[2017-05-21 17:54] VITALS: BP 140/87; PULSE 70; RESP 15; O2SAT 96
== END 2017-05-21 17:54 | disposition home or self-care (01) ==
LOC: EDUNIT#
PROC: 3E0337Z Introduction of Electrolytic and Water Balance Substance into Peripheral Vein, Percutaneous Approach (ICD-10-PCS; principal; 2017-05-21)
DX: R10.84 Generalized abdominal pain (principal); F17.200 Nicotine dependence, unspecified, uncomplicated; E86.9 Volume depletion, unspecified
CPT/HCPCS: 96361; 96374; 96376; 99284; J2060

== ENCOUNTER 2017-06-19 10:19 | Emergency (ER) | payer OTHER, MEDICAID ==
[2017-06-19] MEDS ORDERED: NS 1,000 ML IV ONE (12:06)
[2017-06-19] MEDS ORDERED: FAMOTIDINE 20 MG/NACL 50 ML IV ONE (12:06)
[2017-06-19] MEDS ORDERED: ONDANSETRON 4 MG/2 ML VIAL IVP ONE (12:06)
--- NOTE | 2017-06-19 12:06 | EDPHY ---
H & P Time Seen by Provider: 06/19/17 11:52 HPI/ROS: CHIEF COMPLAINT: Nausea vomiting HISTORY OF PRESENT ILLNESS: Patient is a 66-year-old female with history of drug abuse, previous small-bowel obstruction who presents to the emergency department with nausea vomiting. Her symptoms started 24 hr ago. She does not associated with food. She states she has had numerous episodes. No fevers or chills. She has mild epigastric abdominal discomfort. No diarrhea. No dysuria or frequency. Patient states her hepatitis C is in remission. REVIEW OF SYSTEMS: My complete review of systems is negative except as mentioned in the HPI. Past Medical/Surgical History: Includes small bowel obstruction, hepatitis-C, migraine, opiate dependence, drug abuse, osteoarthritis Past surgical history: Includes lysis of adhesion, myomectomy Social history: The patient denies any drug use at this time. Smoking Status: Light smoker Physical Exam: Vitals noted. 37.2, 131/93, 73, 18, 99% on room air GENERAL: Well-appearing, in no acute distress, alert. HEENT: Eyes normal to inspection, normal pharynx, no signs of dehydration. NECK: No thyromegaly, no lymphadenopathy, supple. RESPIRATORY: Clear to auscultation bilaterally, no rales, rhonchi or wheezing. CVS: Regular rate and rhythm, no rubs, murmurs, or gallops. ABDOMEN: Soft, mild epigastric tenderness to palpation with no rebound or guarding, nondistended, no organomegaly. BACK: Normal to inspection, no CVA tenderness. SKIN: Normal color, no rash, warm, dry. No pallor. EXTREMITIES: No pedal edema, no calf tenderness, no Homans sign or cords, no joint swelling. NEURO/PSYCH: Alert and oriented, normal mood and affect, normal motor sensory exam. Constitutional: Initial Vital Signs Temperature (C) 37.2 C 06/19/17 10:26 Heart Rate 73 06/19/17 10:26 Respiratory Rate 18 06/19/17 10:26 Blood Pressure 131/93 H 06/19/17 10:26 O2 Sat (%) 99 06/19/17 10:26 O2 Delivery Mode Room Air Allergies/Adverse Reactions: No Known Allergies Allergy (Verified 05/11/17 14:04) Home Medications: Medication Instructions Recorded LORazepam [Ativan (*)] 1 mg PO TID #5 tab 11/29/17 Ondansetron Odt [Zofran Odt 4 mg 4 mg PO Q4PRN PRN #7 tab 06/19/17 (*)] Medical Decision Making ED Course/Re-evaluation: In the emergency department discussed possible etiologies with the patient. I answered all her questions. IV was placed. The patient was given normal saline 1 L IV for hydration. She was given Zofran 4 mg IV for nausea. Because the patient's previous small-bowel obstruction history of lysis of adhesions a CT scan was ordered in addition to laboratory studies. I reviewed the patient's laboratory studies. White count was minimally elevated at 11.8. The rest of her CBC was normal. Chemistry panel was notable for a slightly low bicarb at 20. Anion gap was elevated 21. Her renal function was unremarkable. Patient's LFTs were normal. Lipase was normal. CT of the abdomen and pelvis: Please refer the dictated report by Dr. Jian Hardy. No acute disease was noted. I discussed the results with the patient. On recheck the patient was feeling mildly nauseated but had no episodes of vomiting here. She denies abdominal pain. On repeat exam she had no abdominal tenderness. Patient felt comfortable with discharge. She requested Ativan for her anxiety because she is feeling ill. I stated I would give her a few tablets along with Zofran. She was given warnings prior to leaving. She will return with worsening symptoms. Differential Diagnosis: My differential includes but is not limited to small-bowel obstruction, perforation, pancreatitis, cholecystitis, gastroenteritis, esophagitis, dehydration, viral illness - Data Points Laboratory Results: Laboratory Results 06/19/17 13:17 06/19/17 13:17 06/19/17 06/19/17 13:17 13:17 WBC 11.83 10^3/uL H 10^3/uL (3.80-9.50) RBC 5.01 10^6/uL 10^6/uL (4.18-5.33) Hgb 15.6 g/dL g/dL (12.6-16.3) Hct 43.5 % % (38.0-47.0) MCV 86.8 fL fL (81.5-99.8) MCH 31.1 pg pg (27.9-34.1) MCHC 35.9 g/dL g/dL (32.4-36.7) RDW 13.2 % % (11.5-15.2) Plt Count 312 10^3/uL 10^3/uL (150-400) MPV 11.0 fL fL (8.7-11.7) Neut % (Auto) 72.4 % % (39.3-74.2) Lymph % (Auto) 18.9 % % (15.0-45.0) Robeson % (Auto) 7.9 % % (4.5-13.0) Eos % (Auto) 0.0 % L % (0.6-7.6) Baso % (Auto) 0.4 % % (0.3-1.7) Nucleat RBC Rel Count 0.0 % % (0.0-0.2) Absolute Neuts (auto) 8.57 10^3/uL H 10^3/uL (1.70-6.50) Absolute Lymphs (auto) 2.23 10^3/uL 10^3/uL (1.00-3.00) Absolute Monos (auto) 0.93 10^3/uL H 10^3/uL (0.30-0.80) Absolute Eos (auto) 0.00 10^3/uL L 10^3/uL (0.03-0.40) Absolute Basos (auto) 0.05 10^3/uL 10^3/uL (0.02-0.10) Absolute Nucleated RBC 0.00 10^3/uL 10^3/uL (0-0.01) Immature Gran % 0.4 % % (0.0-1.1) Immature Gran # 0.05 10^3/uL 10^3/uL (0.00-0.10) Sodium 142 mEq/L mEq/L (134-144) Potassium 3.7 mEq/L mEq/L (3.5-5.2) Chloride 101 mEq/L mEq/L (97-110) Carbon Dioxide 20 mEq/l L mEq/l (22-31) Anion Gap 21 mEq/L H mEq/L (8-16) BUN 22 mg/dL mg/dL (7-23) Creatinine 0.8 mg/dL mg/dL (0.6-1.0) Estimated GFR > 60 Glucose 107 mg/dL H mg/dL (70-100) Calcium 10.0 mg/dL mg/dL (8.5-10.4) Total Bilirubin 1.0 mg/dL mg/dL (0.1-1.4) Conjugated Bilirubin 0.2 mg/dL mg/dL (0.0-0.5) Unconjugated Bilirubin 0.8 mg/dL mg/dL (0.0-1.1) AST 40 IU/L IU/L (14-46) ALT 37 IU/L IU/L (9-52) Alkaline Phosphatase 123 IU/L IU/L (38-126) Total Protein 8.1 g/dL g/dL (6.3-8.2) Albumin 5.1 g/dL H g/dL (3.5-5.0) Lipase 92 IU/L IU/L (23-300) Medications Given: Discontinued Medications Sodium Chloride (Ns) 1,000 mls @ 0 mls/hr IV EDNOW ONE; Wide Open PRN Reason: Protocol Stop: 06/19/17 12:07 Last Admin: 06/19/17 13:15 Dose: 1,000 mls Famotidine/Sodium Chloride (Pepcid 20 Mg (Premix)) 50 mls @ 200 mls/hr IV EDNOW ONE Stop: 06/19/17 12:20 Last Admin: 06/19/17 13:38 Dose: 50 mls Ondansetron HCl (Zofran) 4 mg IVP EDNOW ONE Stop: 06/19/17 12:07 Last Admin: 06/19/17 13:38 Dose: 4 mg Departure - Departure Disposition: Home, Routine, Self-Care Clinical Impression: Abdominal pain Qualifiers: Abdominal location: epigastric Qualified Code(s): R10.13 - Epigastric pain Vomiting Qualifiers: Vomiting type: unspecified Vomiting Intractability: intractable Nausea presence : with nausea Qualified Code(s): R11.2 - Nausea with vomiting, unspecified Condition: Good Instructions: Acute Nausea and Vomiting (ED), Abdominal Pain (ED) Additional Instructions: Return to the emergency department with increased pain, fever, repeated vomiting or any other concerns. Referrals: Dorcas Garrison [Primary Care Provider] - 1-2 days without fail Prescriptions: LORazepam [Ativan (*)] 1 mg PO TID #5 tab Ondansetron Odt [Zofran Odt 4 mg (*)] 4 mg PO Q4PRN PRN #7 tab PRN Reason: For Nausea & Vomiting
[2017-06-19 13:27] LABS: % IMMATURE GRANULYOCYTES 0.4 % (0.0-1.1); ABSOLUTE IMMATURE GRANULOCYTES 0.05 10^3/uL (0.00-0.10); ADD DIFF? NO; ADD MORPH? NO; ADD SCAN? NO; ATYPICAL LYMPHOCYTE FLAG 0 (0-99); FRAGMENT RBC FLAG 0 (0-99); HEMATOCRIT 43.5 % (38.0-47.0); HEMOGLOBIN 15.6 g/dL (12.6-16.3); LEFT SHIFT FLG 0 (0-99); LIPEMIA HEMOLYSIS FLAG 90 (0-99); MEAN CELL HEMOGLOBIN 31.1 pg (27.9-34.1); MEAN CELL HEMOGLOBIN CONCENTR. 35.9 g/dL (32.4-36.7); MEAN CELL VOLUME 86.8 fL (81.5-99.8); PLATELET CLUMPS FLAG 0 (0-99); PLATELET COUNT 312 10^3/uL (150-400); RED BLOOD CELL COUNT 5.01 10^6/uL (4.18-5.33); RED CELL DISTRIBUTION WIDTH 13.2 % (11.5-15.2)
[2017-06-19 13:44] LABS: ALANINE AMINOTRANSFERASE 37 IU/L (9-52); ALBUMIN 5.1 g/dL (3.5-5.0); ALKALINE PHOSPHATASE 123 IU/L (38-126); ANION GAP 21 mEq/L (8-16); ASPARTATE AMINOTRANSFERASE 40 IU/L (14-46); BILIRUBIN-CONJUGATED 0.2 mg/dL (0.0-0.5); BILIRUBIN-UNCONJUGATED 0.8 mg/dL (0.0-1.1); CARBON DIOXIDE 20 mEq/l (22-31); CHLORIDE 101 mEq/L (97-110); CREATININE 0.8 mg/dL (0.6-1.0); GLOMERULAR FILTRATION RATE > 60; GLUCOSE 107 mg/dL (70-100); POTASSIUM 3.7 mEq/L (3.5-5.2); SODIUM 142 mEq/L (134-144); TOTAL PROTEIN 8.1 g/dL (6.3-8.2)
[2017-06-19] MEDS ORDERED: IOPAMIDOL (ISOVUE-300) 100 ML BTL ONE (13:46)
[2017-06-19 15:10] VITALS: BP 134/73; PULSE 68; RESP 16; TEMP 98.8; O2SAT 96
== END 2017-06-19 15:10 | disposition home or self-care (01) ==
DX: R11.2 Nausea with vomiting, unspecified (principal); R10.13 Epigastric pain; E86.9 Volume depletion, unspecified; F17.200 Nicotine dependence, unspecified, uncomplicated
CPT/HCPCS: 74177; 96365; 96375; 99285; J2405; Q9967

== ENCOUNTER 2017-07-16 11:37 | Emergency (ER) | payer OTHER, MEDICAID ==
--- NOTE | 2017-07-16 13:12 | EDPHY ---
H & P Stated Complaint: fALL 2 DAYS AGO. BACK AND FACIAL PAIN HPI/ROS: Chief complaint: Fall with face and head injury History of present illness: This is a 66-year-old female who presents to the emergency department for evaluation of a face and head injury after sustaining a fall. The fall occurred 2 days ago. She slipped on ice falling forward. She did not lose consciousness. However since then she has had a headache and facial pain. She sustained abrasions to the nose as well. She denies pain or trauma to other parts of the body including the neck, back, chest, abdomen, pelvis or extremities. No other neurologic symptoms such as paresthesias, weakness or paralysis or bowel or bladder dysfunction. Her tetanus is up-to- date. Review of systems: A 10 point review of systems was obtained and other than described above was negative Source: Patient - Personal History Current Tetanus/Diphtheria Vaccine: Yes Current Tetanus Diphtheria and Acellular Pertussis (TDAP): Yes - Medical/Surgical History Hx Asthma: No Hx Chronic Respiratory Disease: No Hx Diabetes: No Hx Cardiac Disease: No Hx Renal Disease: No Hx Cirrhosis: No Hx Alcoholism: No Hx HIV/AIDS: No Hx Splenectomy or Spleen Trauma: No Other PMH: OA right knee, DJD Lumbar, migraine, Hep C remission, opiate dependence - Social History Smoking Status: Light smoker - Physical Exam Exam: General Appearance: Alert, nontoxic Eyes: PERRLA ENT: No hemotympanum, no Ratliff sign, no raccoon eyes Respiratory: Lungs clear to auscultation bilaterally Cardiac: Regular rate and rhythm. Gastrointestinal: Bowel sounds normal. Abdomen is soft, nondistended, nontender to palpation. Neurological: Alert and oriented x4. Cranial nerves 2-12 grossly intact. Strength and sensation intact and symmetrical. Ambulating without difficulty. Skin: Abrasions to the face. No repairable wounds. Musculoskeletal: Tenderness to the face without crepitus or bony deformity. She is opening closing her mouth well. The rest of the head is nontender. The spine is nontender to palpation along its entire length, there is no crepitus, bony deformity or step-off. Chest wall intact palpation. Patient moving all extremities without difficulty. Constitutional: Initial Vital Signs Temperature (C) 36.8 C 07/16/17 11:55 Heart Rate 87 07/16/17 11:55 Respiratory Rate 18 07/16/17 11:55 Blood Pressure 129/83 H 07/16/17 11:55 O2 Sat (%) 99 07/16/17 11:55 O2 Delivery Mode Room Air Allergies/Adverse Reactions: No Known Allergies Allergy (Verified 05/11/17 14:04) Home Medications: Medication Instructions Recorded LORazepam [Ativan (*)] 1 mg PO TID #5 tab 06/19/17 Ondansetron Odt [Zofran Odt 4 mg 4 mg PO Q4PRN PRN #7 tab 06/19/17 (*)] Medical Decision Making - Diagnostics Imaging Results: Imaging Impressions Face CT 07/16/17 12:17 Impression: 1. No significant intracranial abnormality seen. 2. No evidence of facial bone fracture 3. Lucency around the roots of the left first molar off the alveolar ridge and mandible that could be from dental disease versus less likely related to the recent trauma. If symptoms worsen, additional imaging may be necessary. Findings discussed with CLEO Mcrae at 13:05 hour, 07/16/2017. Head CT 07/16/17 12:17 Impression: 1. No significant intracranial abnormality seen. 2. No evidence of facial bone fracture 3. Lucency around the roots of the left first molar off the alveolar ridge and mandible that could be from dental disease versus less likely related to the recent trauma. If symptoms worsen, additional imaging may be necessary. Findings discussed with CLEO Mcrae at 13:05 hour, 07/16/2017. ED Course/Re-evaluation: Patient seen under the supervision of my secondary supervising physician Dr. Chinmay Falcon. Patient presents to the emergency department for face and head injury. She is concerned she has sustained a significant injury. Has a rather benign physical exam. I have discussed the risks and benefits of pursuing CT scan and she would like to pursue a scan to ensure no significant injury. This is performed. No obvious significant injury is noted. By history and physical exam no evidence of trauma to other parts of the body. Patient will be discharged home. Home care is discussed. She is to follow up with her primary care doctor for recheck. Return precautions are given. Differential Diagnosis: Included but not limited to soft tissue injury, bony fracture, intracranial injury Departure - Departure Disposition: Home, Routine, Self-Care Clinical Impression: Head injury Qualifiers: Encounter type: initial encounter Qualified Code(s): S09.90XA - Unspecified injury of head, initial encounter Facial contusion Qualifiers: Encounter type: initial encounter Qualified Code(s): S00.83XA - Contusion of other part of head, initial encounter Facial abrasion Qualifiers: Encounter type: initial encounter Qualified Code(s): S00.81XA - Abrasion of other part of head, initial encounter Condition: Good Instructions: Head Injury (ED), Contusion in Adults (ED), Abrasion (ED), Acute Wounds (ED) Additional Instructions: Follow-up with your primary care doctor this week for recheck Use [id number] ibuprofen and Tylenol as directed as needed for pain If symptoms worsen or new symptoms develop return to the emergency room for recheck Referrals: Jose R Elder MD [Primary Care Provider] - As per Instructions
[2017-07-16 14:10] VITALS: BP 133/78; PULSE 81; RESP 16; TEMP 98.6; O2SAT 96
== END 2017-07-16 14:10 | disposition home or self-care (01) ==
DX: S00.83XA Contusion of other part of head, initial encounter (principal); S00.81XA Abrasion of other part of head, initial encounter; F17.200 Nicotine dependence, unspecified, uncomplicated; W00.0XXA Fall on same level due to ice and snow, initial encounter; Y99.8 Other external cause status; Y93.89 Activity, other specified